=== PATIENT | male | born 1955 | race American Indian/Alaskan Native ===

== ENCOUNTER 2016-08-13 09:01 | Emergency (ER) | payer BC ==
[2016-08-13] MEDS ORDERED: BENADRYL IV ONE (09:55)
--- NOTE | 2016-08-13 10:18 | Emergency Department Report ---
HPI - General Chief Complaint: Allergic Reaction Time Seen by Provider: 08/13/16 09:54 - HPI HPI: This is a 60-year-old Afro-Macedonian male who presents to the emergency department from work with complaint of swelling to the left side of the face. The patient is on lisinopril and has been on this medication for 2 months. He did not have any of the swelling when he first woke up. He ate oatmeal and had a kiwi and went to work where the symptoms started. He did not take anything after the swelling began and presents here with his for further evaluation. He denies any swelling of the tongue, throat, drooling, shortness of breath, problems swallowing. The patient also complains of some intermittent left arm pain that has been going on over the past few days. He denies any protection range of motion, trauma to the area. He denies any chest pain, shortness of breath, back pain. He has a history of hypertension for which she is taking lisinopril in question. His primary care doctor is a Dr. Espinoza. He denies any tobacco or illicit drug use or abuse. No recent travel or sick contacts at home. ED Past Medical Hx - Past Medical History Previous Medical History?: Yes Hx Hypertension: Yes - Surgical History Past Surgical History?: No - Social History Smoking Status: Never Smoker Substance Use Type: Alcohol - Medications Home Medications: Home Medications Medication Instructions Recorded Confirmed Last Taken Type amLODIPine [Norvasc] 5 mg PO DAILY #30 tab 08/13/16 Unknown Rx ED Review of Systems ROS: Stated complaint: POSS STROKE Other details as noted in HPI Comment: All other systems reviewed and negative Constitutional: denies: chills, fever Eyes: denies: eye pain, eye discharge, vision change ENT: other (facial swelling). denies: ear pain, throat pain Cardiovascular: denies: chest pain, palpitations Gastrointestinal: denies: abdominal pain, nausea, diarrhea Genitourinary: denies: urgency, dysuria Musculoskeletal: arthralgia, myalgia Skin: denies: rash, lesions Neurological: denies: headache, weakness, paresthesias Physical Exam - Physical Exam Vital Signs: Vital Signs 08/13/16 09:03 Temperature 98.6 F Pulse Rate 104 H Respiratory 22 Rate Blood Pressure 160/92 O2 Sat by Pulse 100 Oximetry Physical Exam: GENERAL: The patient is well-developed well-nourished. HEENT: Normocephalic. Atraumatic. Extraocular motions are intact. Patient has moist mucous membranes. Pupils equal reactive to light bilaterally. There is some mild swelling to the left side of the lower lip that also extends towards the left cheek, just next to the mouth. There is no rash or erythema. No swelling of the tongue or oral pharynx. No drooling or trismus. NECK: Supple. Trachea is midline. CHEST/LUNGS: Clear to auscultation. There is no respiratory distress noted. HEART/CARDIOVASCULAR: Regular. There is no tachycardia. There is no gallop rub or murmur. ABDOMEN: Abdomen is soft, nontender. Patient has normal bowel sounds. There is no abdominal distention. SKIN: There is some mild swelling to the left side of the lower lip that also extends towards the left cheek, just next to the mouth. There is no rash or erythema. NEURO: The patient is awake, alert, and oriented. The patient is cooperative. The patient has no focal neurologic deficits. The patient has normal speech. MUSCULOSKELETAL: There is no tenderness or deformity. There is no limitation range of motion. There is no evidence of acute injury. ED Course Vital Signs 08/13/16 09:03 Temperature 98.6 F Pulse Rate 104 H Respiratory 22 Rate Blood Pressure 160/92 O2 Sat by Pulse 100 Oximetry ED Medical Decision Making - Lab Data Result diagrams: 08/13/16 10:08 08/13/16 10:08 - EKG Data -: EKG Interpreted by Sc EKG shows normal: sinus rhythm, axis, intervals, QRS complexes, ST-T waves Rate: normal - EKG Data When compared to previous EKG there are: previous EKG unavailable - Radiology Data Radiology results: image reviewed interpreted by me: Chest x-ray did not show any acute process. Heart is normal shape and size. No effusions. No pneumothorax. No signs of pneumonia seen. - Medical Decision Making 60-year-old male presents to the emergency department with some mild swelling to the left lower lip and the left side of his face at the cheek. He has a two- month history of taking lisinopril and I believe that this could be the source of the swelling and/or angioedema. He also had a secondary complaint of some intermittent left arm pains. He denies any chest pain, shortness of breath and other than hypertension and age he does not have any risk factors for current every artery disease. An EKG was done that was normal without ST elevation IN, ischemia or dysrhythmia. He had a normal-appearing chest x-ray first troponin negative. The patient was given some Solu-Medrol and Benadryl. He has been in the emergency department for 4.5 hours and has been in some improvement of the swelling. He does not appear to be in any current danger of any anaphylaxis or respiratory compromise. He will discontinue the lisinopril and I have started him on Norvasc. He will follow-up with his primary care doctor in the next few days to see if he should continue this medication or switch to something else. His is bedside and will continue to watch him and if there is any return or worsening of the swelling or any signs of swelling of the tongue or throat or respiratory distress he will be brought back to the emergency department immediately. - Differential Diagnosis angioedema, dental abscess, contusion Critical Care Time: No Critical care attestation.: If time is entered above; I have spent that time in minutes in the direct care of this critically ill patient, excluding procedure time. ED Disposition Clinical Impression: Angioedema Qualifiers: Encounter type: initial encounter Qualified Code(s): T78.3XXA - Angioneurotic edema, initial encounter Allergic reaction Qualifiers: Encounter type: initial encounter Qualified Code(s): T78.40XA - Allergy, unspecified, initial encounter Disposition: DISCHARGED TO HOME OR SELFCARE Is pt being admited?: No Condition: Stable Instructions: Angioedema (ED) Additional Instructions: Please stop taking the lisinopril. I have started you on a blood pressure medication called Norvasc/amlodipine that is also a once a day medication. Please follow-up in the next few days with your primary care physician to see if they want to to stay on this blood pressure medication or switching to something else. Keep a blood pressure log. Return to the emergency department with any worsening of your symptoms or any acute distress. Prescriptions: amLODIPine [Norvasc] 5 mg PO DAILY #30 tab Referrals: PRIMARY CARE, [Primary Care Provider] - [facility] Time of Disposition: 13:42
--- NOTE | 2016-08-13 10:19 | XRay Report ---
AP CHEST: HISTORY: chest pain AP view of the chest demonstrates a normal mediastinal and cardiac contour with clear lungs and normal bony and soft tissue structures. IMPRESSION: Unremarkable AP chest.
[2016-08-13 10:26] LABS: Basophils % (Auto) 1.2 % (0.0-1.8); Eosinophils % (Auto) 0.7 % (0.0-4.3); Hematocrit 35.9 % (35.5-45.6); Hemoglobin 12.2 gm/dl (11.8-15.2); Mean Corpuscular HGB Conc 34 % (32-34); Mean Corpuscular Hemoglobin 30 pg (28-32); Mean Corpuscular Volume 90 fl (84-94); Platelet Count 250 K/mm3 (140-440); Red Blood Count 4.01 M/mm3 (3.65-5.03); Red Cell Distribution Width 14.2 % (13.2-15.2); White Blood Count 3.6 K/mm3 (4.5-11.0)
[2016-08-13 10:37] LABS: Anion Gap 19 mmol/L; BUN/Creatinine Ratio 15.55; Blood Urea Nitrogen 14 mg/dL (9-20); Calcium 9.1 mg/dL (8.4-10.2); Carbon Dioxide 25 mmol/L (22-30); Chloride 97.4 mmol/L (98-107); Glucose 103 mg/dL (75-100); Sodium 137 mmol/L (137-145)
[2016-08-13 13:28] VITALS: BP 130/68
== END 2016-08-13 14:05 | disposition home or self-care (01) ==
LOC: ED 09:01
DX: T78.3XXA Angioneurotic edema, initial encounter (principal); T78.40XA Allergy, unspecified, initial encounter; I10 Essential (primary) hypertension; X58.XXXA Exposure to other specified factors, initial encounter; Z88.2 Allergy status to sulfonamides; Z88.8 Allergy status to other drugs, medicaments and biological substances
CPT/HCPCS: 36415; 71010; 80048; 84484; 85025; 93005; 93010; 96374; 96375; 99284; J1200; J2930

== ENCOUNTER 2016-08-13 15:44 | Inpatient (IN) | payer BC ==
[2016-08-13] MEDS ORDERED: PEPCID IV ONE (16:45)
[2016-08-13] MEDS ORDERED: BENADRYL IV ONE (16:45)
--- NOTE | 2016-08-13 16:46 | Emergency Department Report ---
ED General Adult HPI - General Chief complaint: Allergic Reaction Stated complaint: ALLERGIC REACTION Time Seen by Provider: 08/13/16 16:39 Source: patient, RN notes reviewed, old records reviewed Mode of arrival: Ambulatory Limitations: No Limitations - History of Present Illness Initial comments: This is a 60-year-old male. He is previously unknown to me. His primary care doctor is Dr. Espinoza. The patient takes lisinopril. The patient presents to the ER with worsening left upper lip swelling. The patient was seen earlier on today for a similar symptoms. He was treated appropriately, and discharged. The patient returns to the ER with worsens upper lip swelling. He denies headache, neck pain, chest pain, abdominal pain, shortness of breath. His symptoms are constant, and they have no exacerbating or relieving factors. -: Gradual Location: mouth Severity scale (0 -10): 0 Consistency: constant Improves with: none Worsens with: none Associated Symptoms: denies other symptoms - Related Data Previous Rx's Medication Instructions Recorded Last Taken Type amLODIPine [Norvasc] 5 mg PO DAILY #30 tab 08/13/16 Unknown Rx Allergies Allergy/AdvReac Type Severity Reaction Status Date / Time Sulfa (Sulfonamide AdvReac Swelling Verified 08/13/16 09:18 Antibiotics) ED Review of Systems ROS: Stated complaint: ALLERGIC REACTION Other details as noted in HPI Constitutional: denies: fever Eyes: denies: vision change ENT: throat pain. denies: epistaxis Respiratory: denies: cough Cardiovascular: denies: chest pain Gastrointestinal: denies: vomiting Genitourinary: as per HPI Musculoskeletal: as per HPI Skin: as per HPI Neurological: as per HPI Psychiatric: as per HPI Hematological/Lymphatic: as per HPI ED Past Medical Hx - Past Medical History Previous Medical History?: Yes Hx Hypertension: Yes - Surgical History Past Surgical History?: No - Social History Smoking Status: Never Smoker Substance Use Type: None - Medications Home Medications: Home Medications Medication Instructions Recorded Confirmed Last Taken Type amLODIPine [Norvasc] 5 mg PO DAILY #30 tab 08/13/16 Unknown Rx ED Physical Exam - General Limitations: No Limitations General appearance: alert, in no apparent distress - Head Head exam: Present: atraumatic, normocephalic - Eye Eye exam: Present: normal appearance, EOMI Pupils: Absent: unequal - ENT ENT exam: Present: normal orophraynx, mucous membranes moist, normal external ear exam, other (patient has swelling noted to the superior aspect of the upper lip. There is no stridor or dysphonia. There is no swelling of the uvula. There is no obvious swelling of the tongue. There is no pain with tracheal manipulation.) - Neck Neck exam: Present: normal inspection, full ROM. Absent: tenderness, meningismus - Respiratory Respiratory exam: Present: normal lung sounds bilaterally. Absent: respiratory distress, wheezes, rales, rhonchi, stridor, chest wall tenderness, accessory muscle use, decreased breath sounds, prolonged expiratory - Cardiovascular Cardiovascular Exam: Present: regular rate, normal rhythm, normal heart sounds. Absent: bradycardia, tachycardia, irregular rhythm, systolic murmur, diastolic murmur, rubs, gallop - GI/Abdominal GI/Abdominal exam: Present: soft, normal bowel sounds. Absent: distended, tenderness, guarding, rebound, rigid, pulsatile mass - Rectal Rectal exam: Present: deferred - Extremities Exam Extremities exam: Present: normal inspection, full ROM, normal capillary refill. Absent: tenderness, pedal edema, joint swelling, calf tenderness - Back Exam Back exam: Present: normal inspection, full ROM. Absent: tenderness, CVA tenderness (R), CVA tenderness (L), muscle spasm, paraspinal tenderness, vertebral tenderness - Neurological Exam Neurological exam: Present: alert, oriented X3, normal gait, other (Extraocular movements intact. Tongue midline. No facial droop. Facial sensation intact to light touch in the V1, V2, V3 distribution bilaterally. 5 and 5 strength in 4 extremities.. Sensation is intact to light touch in 4 extremities.). Absent : motor sensory deficit - Psychiatric Psychiatric exam: Present: normal affect, normal mood - Skin Skin exam: Present: warm, dry, intact, normal color. Absent: rash ED Course Vital Signs 08/13/16 08/13/16 15:52 16:33 Temperature 98.1 F 98.5 F Pulse Rate 97 H 95 H Respiratory 24 16 Rate Blood Pressure 147/85 Blood Pressure 129/76 [Left] O2 Sat by Pulse 99 98 Oximetry ED Medical Decision Making - Lab Data Vital Signs 08/13/16 08/13/16 15:52 16:33 Temperature 98.1 F 98.5 F Pulse Rate 97 H 95 H Respiratory 24 16 Rate Blood Pressure 147/85 Blood Pressure 129/76 [Left] O2 Sat by Pulse 99 98 Oximetry - Medical Decision Making Differential diagnosis: NAHUM inhibitor associated angioedema Assessment and plan: 60-year-old male in with worsening angioedema of the upper lip. He is afebrile, reassuring vital signs, tolerating liquid feeds with no obvious stridor. his old medical records are reviewed from earlier on today, laboratory studies were reviewed. Apparently, the patient's swelling is getting worse. Therefore he will be admitted for airway observation. Patient with worsening angioedema, now with some nonspecific throat discomfort, to be admitted for airway observation. The Hospital physician, Dr. Breg accepts the patient. Critical care attestation.: If time is entered above; I have spent that time in minutes in the direct care of this critically ill patient, excluding procedure time. ED Disposition Clinical Impression: Angioedema Disposition: OP ADMITTED IP TO THIS HOSP Is pt being admited?: Yes Condition: Good Referrals: PRIMARY CARE, [Primary Care Provider] - 3-5 Days
--- NOTE | 2016-08-13 16:55 | Admit Criteria Form ---
Admission Criteria Documentation: HEAD AND NECK DISEASE [facility] Clinical Indications for Admission to Inpatient Care ( Place 'X' for any and all applicable criteria): Hospital admission is needed for appropriate care of the patient because of ANY ONE of the following (1)(2): [ ]I. Severe sinusitis as indicated by ANY ONE of the following (6)(13)(21) [ ]a) Suspected STONE LATHE OPERATOR infection [ ]b) Bacteremia [ ]c) Hemodynamic instability [ ]d) Outpatient and observation care antibiotic treatment have failed or are not considered appropriate [ ]e) Surgical drainage needed that cannot be performed on an outpatient basis or observation. setting [ ]f) Suspected orbital involvement [ ]II. Acute glaucoma unresponsive to emergency treatment that requires medication or other treatment beyond the scope of observation care (1) [ ]III. Severe eye infection or inflammation (eg, uveitis) which is unresponsive to emergency treatment and requires medication or other treatment beyond the scope of observation care (1)(2)(3)(4) [ ]IV. Severe epistaxis requiring posterior packing (5)(6) [ ]V. Acute bacterial labyrinthitis(6)(7) [ ]. Viral labyrinthitis with symptoms uncontrollable on an outpatient or observation care basis (6)(7) [ ]VII. Severe necrotizing external otitis unresponsive to outpatient and observation care treatment(6) [ ]VIII. Otitis media requiring treatment beyond the scope of outpatient and observation care, as indicated by presence or persistence of ANY ONE of the following(6)(8)(9): [ ]a) Hemodynamic instability [ ]b) Mastoiditis [ ]c) Suspected STONE LATHE OPERATOR infection [ ]d) Bacteremia [ ]e) Surgical drainage needed that cannot be performed as an outpatient. or in an observation setting. [ ]IX. Epiglottitis or supraglottitis(6)(11)(12)(13)(14) [ ]X. Stridor or laryngospasm (unresponsive to emergency management) (6)(11)( 12)(13)(14) [ ]XI. Acute pharyngitis or tonsillitis and ANY ONE of the following (14)(15)( 16): [ ]a) Hemodynamic instability remaining after emergency or observation level care (as appropriate) [ ]b) Surgical drainage needed that cannot be performed in outpatient or observation setting [ ]c) Mediastinitis [ ]d) Thrombophlebitis of internal jugular vein (Lemierre syndrome) [ ]XII. Sialoadenitis and ANY ONE of the following (17) (18) [ ]a) Hemodynamic instability remaining after emergency or observation level care(as appropriate) [ ]b) Surgical drainage needed that cannot be performed in outpatient or observation setting [ ]XIII. Airway blockage or inability to swallow (6)(12)(19)(20) [ ]XIV.Complicated infection indicated by ANY ONE of the following(6)(13)(21)(22 ): [ ]a) Abscess or swelling causing airway difficulty(12) [ ]b) Bacteremia [ ]c) Hemodynamic instability [ ]d) Suspected STONE LATHE OPERATOR infection [ ]e) Outpatient and observation care antibiotic treatment have failed or are not considered appropriate [ ]f) Surgical drainage needed that cannot be performed on an outpatient basis or observation setting [ ]g) Other management need that cannot be performed in outpatient or observation setting: [ ]XV. Severe trauma requiring inpatient medical treatment of eye, head, pharynx, or airway (1)(23)([phone]) [ ]XVI. Ischemic optic neuropathy(11) [X ]XVII.Head or Neck Disease condition and ANY ONE of the following: [ X]a) Symptom or finding for which emergency and observation care have failed or are not considered appropriate (Also use General Criteria: Observation Care as appropriate) [ ]b) Presence of ANY ONE of the following: [ ]i) A General Admission Criteria [ ]ii) A Pediatric General Admission Criteria The original [facility] content created by [facility] (Chapter 11) has been revised. The portions of the content which have been revised are identified through the use of italic text or in bold, and [facility] has neither reviewed nor approved the modified material. All other unmodified content is copyright [facility]. Please see references footnoted in the original [facility] edition 2016 Admission Criteria Met: Yes
[2016-08-13] MEDS ORDERED: TYLENOL PO PRN (17:59)
--- NOTE | 2016-08-13 17:59 | History and Physical Report ---
History of Present Illness Chief complaint: My lips are swollen History of present illness: 60 YO Male with HTN presents to ED for evaluation. Pt states that he has experienced swelling of his face over the past day with worsening swelling including his upper lip over the past 4 hours. Pt denies any swelling of the tongue, coughing, drooling, shortness of breath, hoarseness, difficulty swallowing. Pt was seen and evaluated and subsequently discharged from ED this AM but returns with worsening symptoms, including upper lip swelling. Pt denies fever, chills, CP, Palpitations, trauma, Fall, or recent ill contacts. Past History Past Medical History: hypertension Past Surgical History: No surgical history, Other (reviewed) Social history: single. denies: smoking, alcohol abuse, prescription drug abuse Family history: hypertension Medications and Allergies Allergies Allergy/AdvReac Type Severity Reaction Status Date / Time Sulfa (Sulfonamide AdvReac Swelling Verified 08/13/16 09:18 Antibiotics) Home Medications Medication Instructions Recorded Confirmed Last Taken Type amLODIPine [Norvasc] 5 mg PO DAILY #30 tab 08/13/16 08/13/16 Unknown Rx Review of Systems All systems: negative Constitutional: other (face and lip swelling) Exam - Constitutional Vitals: Temp Pulse Resp BP Pulse Ox 98.5 F 95 H 16 129/76 98 08/13/16 16:33 08/13/16 16:33 08/13/16 16:33 08/13/16 16:33 08/13/16 16:33 General appearance: Present: no acute distress, well-nourished - EENT Eyes: Present: PERRL ENT: hearing intact, clear oral mucosa, other (Lip and left facial swelling) - Neck Neck: Present: supple, normal ROM - Respiratory Respiratory effort: normal Respiratory: bilateral: CTA - Cardiovascular Heart Sounds: Present: S1 & S2. Absent: rub, click - Extremities Extremities: pulses symmetrical, No edema Peripheral Pulses: within normal limits - Abdominal General gastrointestinal: Present: soft, non-tender, non-distended, normal bowel sounds Male genitourinary: Present: normal - Integumentary Integumentary: Present: clear, warm, dry - Musculoskeletal Musculoskeletal: gait normal, strength equal bilaterally - Psychiatric Psychiatric: appropriate mood/affect, intact judgment & insight - Neurologic Neurologic: CNII-XII intact, moves all extremities Assessment and Plan - Patient Problems (1) Angioedema Current Visit: Yes Status: Acute Qualifiers: Encounter type: E Plan to address problem: Supportive care, IV steroid therapy, supportive care, supplemental oxygen, (2) HTN (hypertension) Current Visit: Yes Status: Acute Qualifiers: Hypertension type: H Plan to address problem: monitor bp q shift, supportive care. (3) DVT prophylaxis Current Visit: Yes Status: Acute
[2016-08-14] MEDS ORDERED: BENADRYL PO PRN (08:18)
[2016-08-14] MEDS: PEPCID PO SCH ×2 (09:48→22:00)
--- NOTE | 2016-08-14 15:39 | Progress Note ---
Assessment and Plan Assessment and plan: NAHUM inhibitor induced angioedema - Patient is started on Solu-Medrol, famotidine, diphenhydramine - We'll monitor the patient Hypertension - Restart that his amlodipine Prophylaxis - Lovenox Disposition - Continue to discharge tomorrow if swelling is subsided and no breathing difficulty. History Interval history: Patient was seen and evaluated as a bedside this morning, patient has facial and lip swelling. Patient didn't have any difficulty breathing. Hospitalist Physical - Physical exam Narrative exam: Not in cardiopulmonary distress. Fascial swelling including the lips. The patient appeared well nourished and normally developed. Vital signs as documented. Head exam is unremarkable. No scleral icterus . Neck is without jugular venous distension, thyromegaly, or carotid bruits. Lungs are clear to auscultation. Cardiac exam reveals regular rate and Rhythm. First and second heart sounds normal. No murmurs, rubs or gallops. Abdominal exam reveals normal bowel sounds, no masses, no organomegaly and no aortic enlargement. Extremities are nonedematous and both femoral and pedal pulses are normal. 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 No focal weakness. - Constitutional Vitals: Temp Pulse Resp BP Pulse Ox 98.2 F 69 18 141/72 99 08/14/16 08:00 08/14/16 08:00 08/14/16 08:00 08/14/16 08:00 08/14/16 08:02 General appearance: Present: no acute distress, well-nourished
[2016-08-14] MEDS ORDERED: LOVENOX SUB-Q SCH (22:00)
[2016-08-15 08:42] VITALS: BP 148/78
[2016-08-15] MEDS: PEPCID PO SCH (09:08)
[2016-08-15 09:27] LABS: Hemoglobin 13.3 gm/dl (11.8-15.2); Mean Corpuscular HGB Conc 33 % (32-34); Mean Corpuscular Hemoglobin 30 pg (28-32); Mean Corpuscular Volume 91 fl (84-94); Platelet Count 270 K/mm3 (140-440); Red Cell Distribution Width 14.4 % (13.2-15.2); White Blood Count 8.3 K/mm3 (4.5-11.0)
[2016-08-15 09:46] LABS: Anion Gap 17 mmol/L; BUN/Creatinine Ratio 21.66; Blood Urea Nitrogen 13 mg/dL (9-20); Calcium 9.4 mg/dL (8.4-10.2); Carbon Dioxide 27 mmol/L (22-30); Chloride 99.1 mmol/L (98-107); Glucose 137 mg/dL (75-100); Sodium 139 mmol/L (137-145)
[2016-08-15] MEDS ORDERED: NORVASC PO SCH (10:00)
--- NOTE | 2016-08-15 10:29 | Discharge Summary ---
Providers - Providers Date of Admission: 08/13/16 18:00 Date of discharge: 08/15/16 Attending physician: VERONICA CHEN Primary care physician: JAYJAY ROMAN MD Hospitalization Condition: Good Hospital course: Patient is a 60-year-old man with a history of hypertension who presents with facial swelling -Miller inhibitor induced angioedema -Hypertension Disposition: DISCHARGED TO HOME OR SELFCARE Time spent for discharge: 32 minutes Core Measure Documentation - Palliative Care Palliative Care/ Comfort Measures: Not Applicable - Core Measures Any of the following diagnoses?: none - VTE Discharge Requirements Deep Vein Thrombosis/Pulmonary Embolism Present on Admission: No Has pt received <5 days of overlap therapy or INR<2.0: No Anticoagulant overlap therapy prescribed at discharge: No Contraindication No Overlap Therapy order at DC: Not Indicated Exam - Physical Exam Narrative exam: GEN: WDWN, NAD, AWAKE, ALERT, ORIENTATED 3 HEENT: NCAT, PERRL, EOMI, OP CLEAR,patent and open NECK: SUPPLE, NO THYROMEGALY, NO JVD, NO LAD CVS: RRR, NORMAL S1S2 LUNGS/CHEST: CTA B, NORMAL CHEST EXPANSION B, GOOD AIR ENTRY B ABD: SOFT NTND, GBS, NO REBOUND OR GUARDING EXT/SKIN: NO SIGNIFICANT EDEMA OR RASH MSK: FROM X 4 EXTREMITIES NEURO: CN 2-12 GROSSLY INTACT, NO FOCAL DEFICITS PSY: CALM - Constitutional Vitals: Temp Pulse Resp BP Pulse Ox 99.0 F 67 18 148/78 97 08/15/16 08:15 08/15/16 08:15 08/15/16 08:15 08/15/16 08:15 08/15/16 08:15 Plan Activity: advance as tolerated (no strenous activites until cleared by PCP. ) Diet: low salt Follow up with: PRIMARY CARE, [Primary Care Provider] - 3-5 Days Prescriptions: amLODIPine [Norvasc] 5 mg PO DAILY #30 tab methylPREDNISolone [Medrol Dose Paulo] 1 dose PO DAILY #1 pack
== END 2016-08-15 13:08 | disposition home or self-care (01) | DRG 916 ==
LOC: ED 15:44 → 3A 18:00
PROVIDERS: ADMIT Internal Medicine; ATTEND Internal Medicine
DX: T78.3XXA Angioneurotic edema, initial encounter (principal); T46.4X5A Adverse effect of angiotensin-converting-enzyme inhibitors, initial encounter; I10 Essential (primary) hypertension; Z88.2 Allergy status to sulfonamides; Z88.8 Allergy status to other drugs, medicaments and biological substances; Z82.49 Family history of ischemic heart disease and other diseases of the circulatory system; Y92.89 Other specified places as the place of occurrence of the external cause
CPT/HCPCS: 36415; 80048; 85025; 96374; 96375; J1200; J1650; J2920; J2930